=== PATIENT | male | born 1940 | race Caucasian/White ===

== ENCOUNTER → 2023-03-08 07:41 | Outpatient (REF) | payer OTHER, SELFPAY ==
[2023-03-08 10:07] LABS: % Basophils 0.6 % (0-2); % Eosinophils 1.7 % (0-6); % Immature Granulocytes 0.4 % (0-0.5); % Lymphocytes 16.7 % (20.5-51.1); % Monocytes 10.4 % (1.7-9.3); % Neutrophils 70.2 % (42.2-75.2); Absolute Basophils 0.1 10^3/uL (0-0.2); Absolute Eosinophils 0.1 10^3/uL (0-0.7); Absolute Lymphocytes 1.4 10^3/uL (1.2-3.4); Absolute Monocytes 0.9 10^3/uL (0.1-0.6); Absolute Neutrophils 5.8 10^3/uL (1.4-6.5); Hematocrit 45.1 % (39.0-52.0); Hemoglobin 15.2 g/dL (13.0-18.0); Mean Corp Hgb Conc. 33.7 g/dL (33.0-37.0); Mean Corpuscular Hgb 33.3 pg (27.0-31.0); Mean Corpuscular Volume 98.7 fL (80.0-94.0); Nucleated Red Blood Cells % 0 % (-); Platelet Count 243 10^3/uL (130-400); Red Blood Cell Count 4.57 10^6/uL (4.70-6.10); Red Cell Dist. Width 13.1 % (11.5-14.5); White Blood Cell Count 8.2 10^3/uL (4.8-10.8)
[2023-03-08 10:56] LABS: ALT (SGPT) 22 U/L (0-50); AST (SGOT) 35 U/L (17-59); Albumin 4.6 g/dl (3.5-5.0); Alkaline Phosphatase 75 U/L (38-126); Blood Urea Nitrogen 13 mg/dl (9-20); Calcium 9.8 mg/dl (8.4-10.2); Carbon Dioxide 30 mmol/L (22-30); Chloride 103 mmol/L (98-107); Glucose 102 mg/dl (70-99); Potassium 4.9 mmol/L (3.5-5.1); Total Bilirubin 0.9 mg/dl (0.2-1.3); Total Protein 7.2 g/dl (6.3-8.2); eGFR > 60.00
[2023-03-08 11:02] LABS: Sodium 141 mmol/L (135-145)
[2023-03-08 11:23] LABS: TSH 3.72 uIU/ml (0.47-4.68)
[2023-03-08 11:59] LABS: Folate > 20.0 ng/ml (2.76-20); Vitamin B12 635 pg/ml (239-931)
== END ==
LOC: HWLAB 07:41
PROVIDERS: ATTENDING PHYSICIAN Internal Medicine
DX: I48.0 Paroxysmal atrial fibrillation (principal); S09.90XS Unspecified injury of head, sequela
CPT/HCPCS: 36415; 80053; 82607; 82746; 84443; 85025

== ENCOUNTER → 2023-03-09 15:48 | Outpatient (REF) | payer OTHER, SELFPAY | LOC: HWRAD 15:48 | PROVIDERS: ATTENDING PHYSICIAN Internal Medicine | DX: I48.0 Paroxysmal atrial fibrillation (principal); W19.XXXS Unspecified fall, sequela; S09.90XS Unspecified injury of head, sequela | CPT/HCPCS: 70450 ==

== ENCOUNTER → 2023-03-22 12:26 | Outpatient (REF) | payer OTHER, SELFPAY | LOC: RCS 12:26 | PROVIDERS: ATTENDING PHYSICIAN Internal Medicine | DX: I48.0 Paroxysmal atrial fibrillation (principal) | CPT/HCPCS: 93225; 93226 ==

== ENCOUNTER → 2023-05-19 10:29 | Outpatient (REF) | payer OTHER, SELFPAY | LOC: RCS 10:29 | PROVIDERS: ATTENDING PHYSICIAN Internal Medicine Cardiovascular Disease; FAMILY PHYSICIAN Internal Medicine | DX: I48.0 Paroxysmal atrial fibrillation (principal) | CPT/HCPCS: 93017 ==

== ENCOUNTER → 2023-06-08 10:57 | Outpatient (REF) | payer OTHER, SELFPAY | LOC: RAD 10:57 | PROVIDERS: ATTENDING PHYSICIAN Surgery Vascular Surgery; FAMILY PHYSICIAN Internal Medicine | DX: I65.23 Occlusion and stenosis of bilateral carotid arteries (principal) | CPT/HCPCS: 93880 ==

== ENCOUNTER → 2023-06-10 16:35 | Outpatient (REF) | payer OTHER, SELFPAY | LOC: HWRAD 16:35 | PROVIDERS: ATTENDING PHYSICIAN Internal Medicine; REFERRING PHYSICIAN Internal Medicine Cardiovascular Disease | DX: I25.10 Atherosclerotic heart disease of native coronary artery without angina pectoris (principal); I48.0 Paroxysmal atrial fibrillation; I10 Essential (primary) hypertension; E78.2 Mixed hyperlipidemia | CPT/HCPCS: 71046 ==

== ENCOUNTER → 2023-07-11 11:13 | Outpatient (REF) | payer OTHER, MEDICARE, SELFPAY | LOC: DHCBC/DCA 11:13 | PROVIDERS: ATTENDING PHYSICIAN Internal Medicine Cardiovascular Disease; FAMILY PHYSICIAN Internal Medicine | DX: I25.10 Atherosclerotic heart disease of native coronary artery without angina pectoris (principal) | CPT/HCPCS: 78452; 93017; A9500 ==

== ENCOUNTER → 2023-12-01 11:04 | Outpatient (REF) | payer OTHER, MEDICARE, SELFPAY | LOC: DHSLP 11:04 | PROVIDERS: ATTENDING PHYSICIAN Internal Medicine Cardiovascular Disease; FAMILY PHYSICIAN Internal Medicine | DX: G47.33 Obstructive sleep apnea (adult) (pediatric) (principal) | CPT/HCPCS: 95800 ==

== ENCOUNTER 2024-02-15 06:25 | Day surgery (SDC) | payer OTHER, SELFPAY ==
[2024-01-30 10:59] VITALS: BMI 28.0
[2024-01-30 11:21] LABS: Hematocrit 41.2 % (39.0-52.0); Mean Corpuscular Hgb 33.1 pg (27.0-31.0); Mean Corpuscular Volume 97.4 fL (80.0-94.0); Mean Platelet Volume 10.4 fL (7.4-10.4); Platelet Count 181 10^3/uL (130-400); Red Blood Cell Count 4.23 10^6/uL (4.70-6.10); Red Cell Dist. Width 12.6 % (11.5-14.5); White Blood Cell Count 10.4 10^3/uL (4.8-10.8)
[2024-01-30 11:32] LABS: INR 1.08; PT 14.4 Sec (11.4-14.6)
[2024-01-30 11:38] LABS: ALT (SGPT) 19 U/L (0-50); AST (SGOT) 28 U/L (17-59); Albumin 4.5 g/dl (3.5-5.0); Alkaline Phosphatase 54 U/L (38-126); Blood Urea Nitrogen 13 mg/dl (9-20); Calcium 9.6 mg/dl (8.4-10.2); Carbon Dioxide 29 mmol/L (22-30); Chloride 102 mmol/L (98-107); Estimated Creatinine Clearance 83 ml/min; Glucose 113 mg/dl (70-99); Magnesium 2.1 mg/dl (1.6-2.3); Potassium 4.4 mmol/L (3.5-5.1); Sodium 139 mmol/L (135-145); Total Bilirubin 0.5 mg/dl (0.2-1.3); Total Protein 6.8 g/dl (6.3-8.2); eGFR > 60.00
--- NOTE | 2024-01-30 12:10 | HPS.HSE ---
Family Physician
-
Family Physician: Maycol Ulloa
Chief Complaint
-
Paroxysmal atrial fibrillation.
History of Present Illness
The patient is an 83 year old male presenting today for paroxysmal atrial fibrillation. The patient reports a history of fatigue, dyspnea with exertion, decreased exercise tolerance, lightheadedness, and increased anxiety all associated
with this diagnosis. A recent 5 day event monitor demonstrated an 11% arrhythmia burden; however, his Apple watch reports an atrial fibrillation burden upwards of 30%. He is on current pharmacological therapy with Metoprolol Succinate. He has been
compliant with Eliquis for oral anticoagulation. He notes that his atrial fibrillation symptoms greatly interfere with his activities of daily living and overall impact his quality of life. He is interested in pursuing pulmonary vein isolation for
further arrhythmia management. He denies any current complaints today such as chest pain, shortness of breath at rest, nausea, vomiting, diarrhea, dizziness, cough, sore throat, or fever.
Medical History
Past Medical History
Past Medical History: Reports Other
Additional Past Medical History:
1. Paroxysmal atrial fibrillation, pharmacological therapy with Metoprolol Succinate and oral anticoagulaton with Eliquis.
2. Hypertension.
3. Hypercholesterolemia.
4. Coronary artery disease, status post CABG 2002.
5. Carotid stenosis, status post right carotid endarterectomy 2020.
6. Ventricular tachycardia, status post ICD implantation, 2004, and removal, 2020, due to inappropriate shock/lead failure.
7. Moderate mitral regurgitation.
8. Newly diagnosed obstructive sleep apnea, awaiting device.
9. Colon polyps.
10. Diverticulosis.
11. Cholelithiasis.
12. Nephrolithiasis.
13. Peripheral neuropathy.
14. Vertigo.
15. Degenerative disc disease.
16. Sciatica.
17. Osteoarthritis, status post bilateral total knee arthroplasty, 2002, and right reverse total shoulder arthroplasty 2018.
18. BPH.
19. Glaucoma.
20. Anxiety.
21. Insomnia.
22. Remote history of tobacco abuse.
Past Surgical History: Reports Other
Additional Past Surgical History:
1. CABG.
2. Right carotid endarterectomy.
3. ICD implantation.
4. ICD removal.
5. Mini-laparotomy with lymph node biopsy (benign).
6. Bilateral total knee arthroplasty.
7. Right reverse total shoulder arthroplasty.
8. BPH surgery.
9. Multiple epidural steroid injections.
10. Colonoscopy x2.
11. Endoscopy.
Social History
Tobacco: Former Smoker (He reports quitting tobacco altogether in 1965. )
Alcohol: Occasional
Personal:
Living: Other (He lives in a 2 story home with an elevator independently. )
Family History
Family History: Not pertinent
Allergies / Home Medications
Allergy/Medication List:
Home medications:
1. Acetaminophen 1000 mg p.o. every 6 hours as needed.
2. Apixaban 5 mg p.o. twice a day.
3. Atorvastatin 40 mg p.o. at bedtime.
4. Cetirizine 10 mg p.o. daily as needed.
5. Zetia 10 mg p.o. at bedtime.
6. Losartan 25 mg p.o. daily.
7. Lumigan 1 drop ophthalmic to bilateral eyes at bedtime.
8. Metoprolol Succinate 12.5 mg p.o. daily.
9. Multivitamin 1 tablet p.o. daily.
10. Tamsulosin 0.4 mg p.o. at bedtime.
11. Zolpidem 5 mg p.o. at bedtime as needed.
Allergies: Pollen.
Review of Systems
-
A 12 point ROS was completed and negative except as noted: Yes
Physical Exam
Vital Signs
Blood pressure 148/83. Heart rate 73. Respirations 18. Pulse ox 98% on room air.
Height 5 feet, 9 inches. Weight 85.8 kg. BMI 27.9.
Physical Exam
General: Well Developed, Well Nourished and No Apparent Distress
HEENT: NormoCephalic, Moist mucous membranes, Atraumatic and PERRLA
Respiratory: Clear
Cardiac: Irregular Rhythm
GI: Soft, Non Tender and Non Distended
Musculoskeletal: Normal Gait & Station
Skin: Warm and Dry
Neuro: AO x 3 and Nonfocal/grossly intact
Laboratory Results
-
01/30/24 11:07
01/30/24 11:07
Laboratory Results
PT 14.4 Sec (11.4-14.6) 01/30/24 11:07
INR 1.08 01/30/24 11:07
Total Bilirubin 0.5 mg/dl (0.2-1.3) 01/30/24 11:07
AST 28 U/L (17-59) 01/30/24 11:07
ALT 19 U/L (0-50) 01/30/24 11:07
Alkaline Phosphatase 54 U/L (38-126) 01/30/24 11:07
Type and screen A negative.
EKG 01/30/2024: Atrial fibrillation.
Chest CT 01/30/2024: Short segment common vestibule for the left superior and inferior pulmonary veins, fairly commonly seen and considered normal variant. No evidence for left atrial thrombus. Cholelithiasis.
Echocardiogram 12/28/2022: Ejection fraction is 55-60%. Mild left ventricular hypertrophy. Moderate mitral regurgitation. Severe left atrial enlargement. PASP 31 mmHg.
Impression/Plan
-
IMPRESSION/PLAN:
1. Paroxysmal atrial fibrillation: The patient is in need of pulmonary vein isolation with Dr. Maycol Francis on 02/15/2024. The benefits and risks of the procedure have been explained to the patient. The patient understands these risks and wishes to
proceed. He will not be required to undergo a pre-procedural transesophageal echocardiogram as he has been compliant with his home oral anticoagulation. He is aware to continue his Eliquis uninterrupted prior to his procedure. He is aware to take no
medications the morning of his procedure.
[2024-02-15] VITALS (16 sets, daily range): BP systolic 106–161; BP diastolic 61–91; BMI 25.8
[2024-02-15] MEDS: FLOMAX 0.4 MG PO ×2 (07:22→17:35)
--- NOTE | 2024-02-15 07:53 | ITS.CL.ABL ---
Company Laborer - Ablation
Ablation
Procedure Report:
Primary Optician: Tad Lott MD
Procedure Date: 02/15/2024
Patient History:
Patient is a very pleasant 83-year-old male with past medical history significant for CAD status post CABG, carotid artery stenosis status post carotid endarterectomy, hypertension, hypercholesterolemia, prior secondary prevention ICD implanted 2004
removed 2020 due to inappropriate shocks device therapies, with new onset symptomatic paroxysmal atrial fibrillation.
See H&P for complete details.
Indication:
Symptomatic paroxysmal atrial fibrillation
Arrhythmia Specific History:
Prior Medical Therapies for Rate and Rhythm Control:
X Beta-salo
[ ] Calcium channel-salo
[ ] Amiodarone
[ ] Dronederone
[ ] Sotalol
[ ] Flecainide
[ ] Dofetilide
[ ] Options limited by bradycardia
[ ] Options limited by comorbid renal disease
Prior Procedural Therapies for AF/AFL:
[ ] Cardioversion
[ ] Pulmonary Vein Isolation
[ ] Posterior Wall Isolation
[ ] Additional lines (Specify)
[ ] Surgical Douglas-MAZE or PVI (Specify)
Procedure Performed:
X AF ablation procedure (14694) -- includes LA/CS pacing, trans-septal, 3D mapping, + ICE
[ ] +IV drug (56090)
[ ] +Other Arrhythmia (52831)
X +Other AF Line/ablation (94844) - Posterior wall isolation (Floor/roof/wall)
X + Ultrasound guidance for vascular access (23184)
Risks and expected recovery has been explained in detail. Alternative options have been explored, and in a shared-decision making fashion we have decided that this was the most appropriate procedure.
Method
NPO status confirmed. Grounding pad applied. Defibrillator pads applied. Continuous surface ECG, pulse oximetry, and blood pressure were monitored. Procedure was performed under general anesthesia, with anesthesia services.
Both groins were clipped, prepped with Chloraprep, and draped in sterile fashion. Time out was called. Local anesthesia administered with bupivacaine. The right femoral vein was accessed for catheter placement, using ultrasound guidance for vascular
access (images recorded), micro-puncture needle/wire, and modified seldinger technique. 3 sheaths were placed. The following catheters were used:
[ ] Tacticath SE (D/F Curve) ablation catheter
X Viewflex 9Fr ICE catheter
X Inquiry decapolar 6Fr diagnostic catheter
[ ] CRD Hex 6Fr
[ ] Arctic Front Advance Cryoballoon ([ ]28mm[ ]23mm)
[ ] Achieve Advance mapping catheter ([ ]15mm[ ]20mm)
X FlexCath Contour 10 Fr with PulseSelect PFA Catheter
X Advisor HD Grid Mapping Catheter, SE
[ ] Acuson AcuNav 8 Fr ICE catheter
[ ]Other: [ ]
Intracardiac ultrasound (ICE) was carefully advanced into the right atrium to guide sheath placement over a J-wire, catheter placement, guide trans-septal puncture, identify potential complications, identify anatomic structures and ensure proper
contact between ablation catheter and tissue.
Heparin was given prior to trans-septal puncture. Heparin was given to achieve and maintain a target ACT of 300-400 seconds throughout the procedure.
Trans-septal access was performed under ICE guidance. The trans-septal puncture was performed with a SafeSept wire through a Brockenbrough needle assembly through the steerable sheath. The wire was visualized as it entered the LSPV and system
advanced under ICE guidance and fluoroscopy into the LA. The Brockenbrough needle assembly, SafeSept wire and sheath dilator were removed under negative pressure. LA pressure was measured and recorded.
ICE and 3D mapping was performed to identify relevant cardiac structures. A careful 3D map was created to assess for regions of low-voltage and abnormal electrogram signals using HD grid mapping catheter and PulseSelect catheter. Additional mapping
was performed as outlined below.
Prior to ablation, glycopyrrolate was provided. PulseSelect catheter was advanced over J-wire to the ostium of each vein. Pulmonary vein isolation was performed with ostial and antral lesions in a circumferential manner. Contact was visualized via
EAM, ICE, fluoroscopy, and EGM signals. Posterior wall isolation was performed by anchoring the J-wire within the pulmonary vein and placing the PulseSelect catheter in contact with the posterior wall as visualized by aforementioned methods.
Following completion of ablation lesions, sinus rhythm was restored with a 200J synchronized DCCV and a post-ablation voltage/activation map was performed in sinus rhythm. Entrance and exit block were confirmed for each vein and the posterior wall.
Catheter and sheath were removed from the left atrium and post-ablation intracardiac echo evaluation was consistent with pre-ablation with no changes and no pericardial effusion and there is no left atrial thrombus or left ventricle thrombus seen.
Electrophysiology study was performed. Hemostasis was obtained with figure of 8 stitch for each groin and with manual pressure. Protamine was used for reversal.
Estimated Blood Loss
5 mL
Complications
None
Fluoroscopy: 3.3 minutes; 11.89 mGy
Baseline Intervals:
Rhythm: AF
QRS: 85 ms
QT: 388 ms
QTc: 428 ms
Post-Procedure Intervals:
TN: 134 ms
QRS: 88 ms
QT: 368 ms
QTc: 422 ms
AVWB: 400 ms
AVERP: 600/350 ms
Recommendations
- Bedrest with straight-leg precautions as ordered
- Admit with anticipate discharge home tomorrow after overnight observation
- Resume home medications as indicated
- Ok to resume anticoagulation tonight if patient and groin sites stable
- PPI daily for 30 days
- Plan for follow-up in office as scheduled
Maycol Francis DO
Clinical Cardiac Desktop Support Manager
cc: Tad Lott MD; Maycol Ulloa MD
[2024-02-15 09:10] LABS: ACT-LR - POC 250 Seconds (116-155)
[2024-02-15 09:25] LABS: ACT-LR - POC 277 Seconds (116-155)
[2024-02-15 09:41] LABS: ACT-LR - POC 339 Seconds (116-155)
[2024-02-15 10:06] LABS: ACT-LR - POC 392 Seconds (116-155)
[2024-02-15 10:24] LABS: ACT-LR - POC 165 Seconds (116-155)
[2024-02-15] MEDS: ANESTHETIC LOZENGE 1 LOZENGE PO (11:12)
[2024-02-15] MEDS: TYLENOL 650 MG PO (16:49)
--- NOTE | 2024-02-15 16:49 | CM ---
CM following for DC planning needs.
Met w/ patient at bedside to complete initial assessment.
Pt. resides alone in a private, 1 st home. Pt. is functionally indep. w/ ADLs, mobility without the use of any assisted device.
Pt. has recently gotten a CPAP machine but has not begun to use.
Pt. has RX plan and uses [facility] on [address] in [place] otherwise he uses [facility] thru mail-order.
Anticipated DC plan is for home, no needs.
Will follow.
[2024-02-15] MEDS: ZETIA 10 MG PO (17:34)
[2024-02-15] MEDS: COZAAR 25 MG PO (17:35)
[2024-02-15] MEDS: LIPITOR 40 MG PO (17:35)
[2024-02-15] MEDS: ELIQUIS 5 MG PO (20:43)
[2024-02-15] MEDS: XALATAN OPHTHALMIC SOLUTION 1 DROP BOTH EYES (20:44)
--- NOTE | 2024-02-16 01:31 | PTCARENOTE ---
Assumed care of patient at change of shift. Patient ambulating self in room without difficulty, denies any dizziness. Tele remains NSR-Sinus joleen. Patient denies any pain or discomfort. Right groin dressing soft on palpation and dressing intact.
Bilateral DP pulses palpable. Call fraga within reach.
[2024-02-16 03:21] VITALS: BP 119/71
[2024-02-16 04:05] LABS: Hematocrit 35.7 % (39.0-52.0); Hemoglobin 12.3 g/dL (13.0-18.0); Mean Corp Hgb Conc. 34.5 g/dL (33.0-37.0); Mean Corpuscular Hgb 33.3 pg (27.0-31.0); Mean Corpuscular Volume 96.7 fL (80.0-94.0); Mean Platelet Volume 10.7 fL (7.4-10.4); Platelet Count 173 10^3/uL (130-400); Red Blood Cell Count 3.69 10^6/uL (4.70-6.10); Red Cell Dist. Width 12.6 % (11.5-14.5); White Blood Cell Count 15.2 10^3/uL (4.8-10.8)
[2024-02-16 04:18] LABS: Blood Urea Nitrogen 17 mg/dl (9-20); Calcium 9.1 mg/dl (8.4-10.2); Carbon Dioxide 25 mmol/L (22-30); Chloride 103 mmol/L (98-107); Estimated Creatinine Clearance 85 ml/min; Glucose 122 mg/dl (70-99); Magnesium 2.1 mg/dl (1.6-2.3); Potassium 4.5 mmol/L (3.5-5.1); Sodium 138 mmol/L (135-145); eGFR > 60.00
[2024-02-16 07:17] VITALS: BP 123/58
--- NOTE | 2024-02-16 07:45 | W.PN.CARDCBS ---
Addendum entered and electronically signed by Chris Ryder MD 02/16/24 09:24:
Patient seen and examined
Agree with COMPREHENSIVE OPHTHALMOLOGIST note and assessment
Agree with COMPREHENSIVE OPHTHALMOLOGIST plan
Examination
Cor regular no murmur
Bilateral groins clean dry and intact
Alert and x 3
Nonfocal neurologically
Remainder as per COMPREHENSIVE OPHTHALMOLOGIST note
Impression:
Symptomatic PAF
post PVI 02/15/24
CAD/CABG 2002
JOSE ALBERTO post CEA 2020
VT ICD 2004, removal 2020 for inappropriate shock
CARMEN/CPAP
BPH
Anxiety
peripheral neuropathy
HTN
HLD
Plan:
He appears stable for discharge
OAC Eliquis
continue metoprolol
add PPI x 30 days
Activity restrictions reviewed
f/u DCA 1 mo
home today
Original Note:
Today's Communication / Plan
-
post ablation stable for d/c home
Impression / Plan
-
Primary care physician: Fito Ulloa MD
Primary Check Viewer: Tad Lott MD
83-year-old male with past medical history significant for CAD status post CABG, carotid artery stenosis status post carotid endarterectomy, hypertension, hypercholesterolemia, prior secondary prevention ICD implanted 2004 removed 2020 due to
inappropriate shocks device therapies, with new onset symptomatic paroxysmal atrial fibrillation.
Impression:
Symptomatic PAF
post PVI 02/15/24
CAD/CABG 2002
JOSE ALBERTO post CEA 2020
VT ICD 2004, removal 2020 for inappropriate shock
CARMEN/CPAP
BPH
Anxiety
peripheral neuropathy
HTN
HLD
Plan:
post ablation feels good
tele SR
groins stable
OAC Eliquis
continue metoprolol
add PPI x 30 days
Activity restrictions reviewed
f/u DCA 1 mo
home today
Progress Note - Check Viewer
Subjective
Date of Service: February 16, 2024
no cp, sob
Objective
Labs:
02/16/24 03:35
02/16/24 03:35
Labs
Hgb 12.3 g/dL (13.0-18.0) L 02/16/24 03:35
Hct 35.7 % (39.0-52.0) L 02/16/24 03:35
Plt Count 173 10^3/uL (130-400) 02/16/24 03:35
PT 14.4 Sec (11.4-14.6) 01/30/24 11:07
INR 1.08 01/30/24 11:07
Sodium 138 mmol/L (135-145) 02/16/24 03:35
Potassium 4.5 mmol/L (3.5-5.1) 02/16/24 03:35
BUN 17 mg/dl (9-20) 02/16/24 03:35
Creatinine 0.7 mg/dL (0.7-1.3) 02/16/24 03:35
Glucose 122 mg/dl (70-99) H 02/16/24 03:35
Vital Signs and I&O:
Vital Signs
Temp Pulse Resp BP Pulse Ox
98.4 F 58 20 123/58 98
02/16/24 07:15 02/16/24 07:17 02/16/24 07:15 02/16/24 07:17 02/16/24 07:15
Vital Signs
Temp Pulse Resp BP Pulse Ox
98.4 F 58 20 123/58 98
02/16/24 07:15 02/16/24 07:17 02/16/24 07:15 02/16/24 07:17 02/16/24 07:15
Intake & Output
01/07/25 01/08/25 01/09/25 01/10/25
06:59 06:59 06:59 06:59
Intake Total 240 / 240
Balance 240 / 240
Physical Exam
Physical Exam
NAD, AOX3
S1, S2, RRR
CTAB, non labored, no wheeze
SNTND bsx4
R fem site c/d/i no HT, soft
[2024-02-16] MEDS: PROTONIX 40 MG PO (08:45)
[2024-02-16] MEDS: TOPROL XL 12.5 MG PO (08:45)
[2024-02-16] MEDS: ELIQUIS 5 MG PO (08:45)
[2024-02-16] MEDS: TYLENOL 650 MG PO (08:48)
[2024-02-16 10:01] VITALS: BMI 25.8
--- NOTE | 2024-02-16 10:41 | W.DS.TRANS ---
DC Summary - Sales Data Analyst
-
Discharge Instructions:
Discharge Diagnosis/Procedures AFib, s/p ablation
Diet Low Cholesterol
Driving Restrictions No driving for 24 hours
Instructions:
Stand-Alone Forms: DC Instructions- Cath/EP Lab
Changes to Home Medications: No
Discharge Medications:
DC Medications w/original date entered in [facility]
acetaminophen 500 mg tablet (Tylenol Extra Strength) 1,000 mg PO Q6HPRN PRN pain 03/11/20
atorvastatin 40 mg tablet (Lipitor) 40 mg PO QPM High cholesterol 03/11/20
bimatoprost 0.01 % eye drops (Lumigan) 1 drp BOTH EYES HS Eye condition 03/11/20
cetirizine 10 mg tablet 10 mg PO DAILY PRN allergies 03/11/20
ezetimibe 10 mg tablet 10 mg PO QPM High cholesterol 03/11/20
metoprolol succinate 25 mg tablet,extended release 24 hr 12.5 mg PO DAILY Blood pressure 03/11/20
multivitamin with folic acid 400 mcg tablet (Tab-A-Magali) 1 tab PO DAILY Supplement 03/11/20
zolpidem 10 mg tablet 5 mg PO HSPRN PRN sleep 03/11/20
apixaban 5 mg tablet (Eliquis) 5 mg PO BID Blood Clot Prevention/Tx 01/26/24
losartan 25 mg tablet 25 mg PO QPM Blood Pressure 01/26/24
tamsulosin 0.4 mg capsule (Flomax) 0.4 mg PO QPM Urinary Issue 02/15/24
pantoprazole 40 mg tablet,delayed release (Protonix) 40 mg PO DAILY #30 tabs 02/16/24
Home Medication Changes
Pending Results: No
== END 2024-02-16 14:40 | disposition home or self-care (01) ==
LOC: CATH 06:25
PROVIDERS: Nurse Practitioner; ATTENDING PHYSICIAN Internal Medicine Cardiovascular Disease; FAMILY PHYSICIAN Internal Medicine; OTHER PHYSICIAN Internal Medicine Cardiovascular Disease
DX: I48.0 Paroxysmal atrial fibrillation (principal); I25.10 Atherosclerotic heart disease of native coronary artery without angina pectoris; Z95.1 Presence of aortocoronary bypass graft; I10 Essential (primary) hypertension; E78.00 Pure hypercholesterolemia, unspecified; I47.20 Ventricular tachycardia, unspecified; I34.0 Nonrheumatic mitral (valve) insufficiency; I65.29 Occlusion and stenosis of unspecified carotid artery; G47.33 Obstructive sleep apnea (adult) (pediatric); N40.0 Benign prostatic hyperplasia without lower urinary tract symptoms; Z87.891 Personal history of nicotine dependence; Z79.01 Long term (current) use of anticoagulants
CPT/HCPCS: C1732; C1894; C1769; C1733; C1766; 36415; 75572; 80048; 80053; 83735; 85027; 85347; 85610; 86850; 86900; 86901; 93005; 93656; 93657; Q9967

== ENCOUNTER → 2024-06-13 12:54 | Outpatient (REF) | payer OTHER, SELFPAY | LOC: RAD 12:54 | PROVIDERS: ATTENDING PHYSICIAN Surgery Vascular Surgery; FAMILY PHYSICIAN Internal Medicine | DX: I65.23 Occlusion and stenosis of bilateral carotid arteries (principal) | CPT/HCPCS: 93880 ==

== ENCOUNTER → 2024-10-16 08:48 | Outpatient (REF) | payer OTHER, SELFPAY ==
[2024-10-16 12:36] LABS: Hematocrit 41.9 % (39.0-52.0); Hemoglobin 14.1 g/dL (13.0-18.0); Mean Corp Hgb Conc. 33.7 g/dL (33.0-37.0); Mean Corpuscular Volume 97.9 fL (80.0-94.0); Nucleated Red Blood Cells % 0 % (-); Platelet Count 179 10^3/uL (130-400); Red Cell Dist. Width 12.6 % (11.5-14.5)
[2024-10-16 13:41] LABS: Urine Character Clear (Clear)
[2024-10-16 14:36] LABS: ALT (SGPT) 23 U/L (0-50); AST (SGOT) 30 U/L (17-59); Albumin 4.5 g/dl (3.5-5.0); Alkaline Phosphatase 59 U/L (38-126); Blood Urea Nitrogen 13 mg/dl (9-20); Calcium 9.8 mg/dl (8.4-10.2); Carbon Dioxide 30 mmol/L (22-30); Chloride 106 mmol/L (98-107); Glucose 102 mg/dl (70-99); HDL Cholesterol 27 mg/dl; LDL Cholesterol, Calculated 55 mg/dl; Potassium 4.3 mmol/L (3.5-5.1); Sodium 141 mmol/L (135-145); Total Protein 6.8 g/dl (6.3-8.2); Very Low Density Lipoprotein 27 mg/dl (0-30); eGFR > 60.00
[2024-10-16 14:39] LABS: Urine Squamous Cell 0-2 /LPF (Few)
[2024-10-16 14:40] LABS: Urine White Cell 0-2 /HPF (0-5)
[2024-10-16 15:10] LABS: PSA, Total - Screen 1.77 ng/ml (0.0-4.0); TSH 3.11 uIU/ml (0.47-4.68)
== END ==
LOC: HWLAB 08:48
PROVIDERS: ATTENDING PHYSICIAN Internal Medicine
DX: I25.10 Atherosclerotic heart disease of native coronary artery without angina pectoris (principal); I48.0 Paroxysmal atrial fibrillation; E78.00 Pure hypercholesterolemia, unspecified; G47.33 Obstructive sleep apnea (adult) (pediatric); N40.1 Benign prostatic hyperplasia with lower urinary tract symptoms; M51.362 Other intervertebral disc degeneration, lumbar region with discogenic back pain and lower extremity pain
CPT/HCPCS: 36415; 80053; 80061; 81003; 81015; 84443; 85025; G0103

== ENCOUNTER 2024-10-18 06:15 | Day surgery (SDC) | payer OTHER, SELFPAY | END 2024-10-18 10:46 | disposition home or self-care (01) | LOC: GI 06:15 | PROVIDERS: ATTENDING PHYSICIAN Internal Medicine; FAMILY PHYSICIAN Internal Medicine | DX: Z12.11 Encounter for screening for malignant neoplasm of colon (principal); Z86.0100 Personal history of colon polyps, unspecified; K57.30 Diverticulosis of large intestine without perforation or abscess without bleeding; K64.9 Unspecified hemorrhoids; K63.5 Polyp of colon | CPT/HCPCS: 45380; 88305 ==

== ENCOUNTER → 2024-10-25 12:49 | Outpatient (REF) | payer OTHER, SELFPAY ==
[2024-10-25 17:18] LABS: Urine Character Clear (Clear)
== END ==
LOC: HWLAB 12:49
PROVIDERS: ATTENDING PHYSICIAN Internal Medicine
DX: R31.29 Other microscopic hematuria (principal)
CPT/HCPCS: 81003; 87086

== ENCOUNTER → 2024-11-26 14:50 | Outpatient (REF) | payer OTHER, SELFPAY | LOC: HWRCS 14:50 | PROVIDERS: ATTENDING PHYSICIAN Internal Medicine Cardiovascular Disease; FAMILY PHYSICIAN Internal Medicine | DX: I25.10 Atherosclerotic heart disease of native coronary artery without angina pectoris (principal); I34.0 Nonrheumatic mitral (valve) insufficiency | CPT/HCPCS: 93306 ==